=== PATIENT | female | born 1985 ===

== ENCOUNTER 2019-03-02 16:22 | Inpatient (IN) | payer MEDICAID, SELFPAY ==
[2019-03-02 17:25] VITALS: BMI 29.2
[2019-03-02] MEDS ORDERED: Oxytocin 30 UNIT in NS 500 ml 30 UNITS/500 ML BAG IV ONE (17:54)
[2019-03-02] MEDS ORDERED: Lactated Ringer's 1,000 ML IV ONE (18:00)
[2019-03-02] MEDS ORDERED: Oxytocin 10 Units/ml Inj ONE (18:24)
[2019-03-02] MEDS ORDERED: Oxytocin 10 Units/ml Inj IM ONE (18:31)
[2019-03-02] MEDS ORDERED: Oxycodone/Acetaminophen 5/325 mg Tab PO PRN ×2 (18:32→19:12)
[2019-03-02] MEDS ORDERED: Benzocaine/Menthol SPRAY TOP PRN ×2 (18:32→19:12)
[2019-03-02 18:49] LABS: BASO # 0.1 K/uL (0.0-0.2); BASO % 0.9 % (0.0-2.0); EOS % 0.4 % (0.0-4.0); HEMOGLOBIN 12.3 g/dL (12.0-16.0); LYMPH # 2.3 K/uL (1.0-4.3); LYMPH % 23.5 % (20.0-40.0); MEAN CELL VOLUME 87.6 fl (81.0-99.0); MEAN CORPUSCULAR HEMOGLOBIN 28.8 pg (27.0-31.0); MEAN CORPUSCULAR HGB CONC 32.9 g/dL (33.0-37.0); MEAN PLATELET VOLUME 12.9 fl (7.2-11.7); MONO # 0.4 K/uL (0.0-0.8); MONO % 3.7 % (0.0-10.0); NEUT # 6.9 K/uL (1.8-7.0); NEUT % 71.5 % (50.0-75.0); NRBC % 0.2 % (0.0-0.0); RBC 4.27 Mil/uL (3.80-5.20); RED CELL DISTRIBUTION WIDTH 16.9 % (11.5-14.5); WHITE BLOOD COUNT 9.7 K/uL (4.8-10.8)
[2019-03-03 07:30] LABS: BASO % 0.4 % (0.0-2.0); EOS % 0.4 % (0.0-4.0); HEMOGLOBIN 11.4 g/dL (12.0-16.0); LYMPH # 1.8 K/uL (1.0-4.3); LYMPH % 18.3 % (20.0-40.0); MEAN CELL VOLUME 88.7 fl (81.0-99.0); MEAN CORPUSCULAR HEMOGLOBIN 29.1 pg (27.0-31.0); MEAN CORPUSCULAR HGB CONC 32.8 g/dL (33.0-37.0); MEAN PLATELET VOLUME 12.1 fl (7.2-11.7); MONO # 0.7 K/uL (0.0-0.8); MONO % 6.9 % (0.0-10.0); NEUT # 7.3 K/uL (1.8-7.0); RBC 3.9 Mil/uL (3.80-5.20); RED CELL DISTRIBUTION WIDTH 16.5 % (11.5-14.5); WHITE BLOOD COUNT 9.9 K/uL (4.8-10.8)
--- NOTE | 2019-03-03 08:43 | OBPPN ---
Datetime: 03/03/2019 05:54 PP Pain Prov: Within normal limits PP Nausea Prov: Denies PP Flatus Prov: Yes PP BM Prov: No PP Heart Prov: Normal PP Lungs Prov: Normal PP Lochia Prov: Normal PP Extremities Prov: Normal PP C/S Incision Prov: Not Applicable PP Progress Prov: Normal PP Comments Phys Exam Prov: see progress note PP Impression Prov: Normal progression PP Plan Prov: Continue present management PP Progress Note Prov: 33 YO , PPD 1 s/p yesterday 03/02/19. Patient seen and examined at bedside this morning. Patient has no complaints, reports that the pain is controlled with pain medica tion. Patient is ambulating w/o difficulties. Pt is breast feeding, she is tolerating regular diet. L ochia like menses in volume. +Flatus, -BM. Denies fevers, chills, dizziness, chest pain, SOB, N/V/D, hematuria or dysuria. VS: wnl Gen: NAD HEENT: NCAT Cardio: RRR, S1S2 present. Lungs: CTA B/L, no wheezes Abd: soft, appropriate tenderness to palpation, Uterus firm below level of umbilicus Ext: No edema, Myesha's negative NEURO/PSYCH: AAOx3, no grossly focal deficits, preserved affect and mood A/P 33 YO , PPD 1 s/p yesterday 03/02/19, with normal progression. Plan: - and ambulation encouraged. -Ibuprofen 600 mg 1 tab Q 6h PRN mild pain -Percocet 5/325 PO Q4h PRN pain -Continue vit -DC planning on 03/04/19 Case discussed with attending Xiang Brian MD PGY1 Attending addendum: I saw and examined the patient at bedside myself this morning. I reviewed the resident note above and agree with findings and management. Anticipate DC home tomorrow. Teena Caputo MD Vital Signs Provider PP: Reviewed; Within Normal Limits
--- NOTE | 2019-03-04 08:36 | OBPPN ---
Datetime: 03/04/2019 05:54 PP Pain Prov: Within normal limits PP Nausea Prov: Denies PP Flatus Prov: Yes PP BM Prov: No PP Heart Prov: Normal PP Lungs Prov: Normal PP Comments Phys Exam Prov: See progress note PP Impression Prov: Normal progression PP Plan Prov: Continue present management; Discharge PP Progress Note Prov: 33 YO , PPD 2 s/p . Patient seen and examined at bedside this morn ing. Patient has no complaints, reports that the pain is controlled with pain medication. Patient is ambulating w/o difficulties. Pt is breast and bottle feeding, she is tolerating regular diet. Lochia less than menses in volume. +Flatus, -BM. Denies fevers, chills, dizziness, chest pain, SOB, N/V/D, h ematuria or dysuria. VS: wnl Gen: NAD HEENT: NCAT Cardio: RRR, S1S2 present, no murmurs noted. Lungs: CTA B/L, no wheezes, rales or rhonchi Abd: soft, appropriate tenderness to palpation, Uterus firm at level of umbilicus Ext: No edema, Myesha's negative NEURO/PSYCH: AAOx3, no grossly focal deficits, preserved affect and mood A/P 37 YO , PPD 2 s/p , with normal progression. Plan: - and ambulation encouraged. -Ibuprofen 600 mg 1 tab Q 6h PRN mild pain -Percocet 5/325 PO Q4h PRN pain -Continue vit -DC planning today Case reviewed and discussed with attending Xiang Brian MD PGY1 Attending addendum: I saw and examined the patient at bedside myself this morning. I reviewed the resident note above and agree with findings and management. DC home today, f/u at [facility]. Teena Caputo MD Vital Signs Provider PP: Reviewed; Within Normal Limits
--- NOTE | 2019-03-04 08:39 | OBDCSUM ---
Datetime: 03/04/2019 05:56 Discharged to, Provider: Home Follow up at, Provider: Dr Mijares Disch Instr Diet: Regular Discharge Instructions, Provider: Routine instructions given Discharge Diagnosis, Provider: Term Delivered Follow up in weeks, Provider: 4 weeks Contraception discussed, Prov: Yes Disch Activity Restrictions: No lifting; Minimize stair-climbing; Nothing in vagina - [place], t ampdo esperanzauchtavo Discharge Comment, Provider: 33 YO female status post NVD at [place] 39wk, had baby girl on 9. Dewitt: female, Wt. 3020 gm, 9 Post- D/C Summary: 33 YO female status post NVD at [place] 39 wk. Intrapartum: EBL 100 ml , 1st degree laceration repaired. No complications during post- period, today on her day 2 PPD with normal progression . Lochia is less than menses. Pt able to pass flatus, has passed a bowel movement. Voiding well and able to ambulate without difficulty. Tolerating regular diet w/o N/ V. Fundus firm below umbilicus level. Pt is hemodynamically stable. H/H: 11.4/34.6 Discharge Instructions given to patient: Encourage PNV 1 tab po q/day Ibuprofen 400 mg 1 tab po prn q4-6 if moderate pain. Ambulatory with caution, nothing per vagina/sex for 4 weeks, no heavy lifting, avoid stairs, if ex cessive bleeding or fever without relief from Tylenol go to ED ED precautions: If excessive bleeding, pain that does not get relief, fever >100.4, palpitations, SOB, CP or other concerning symptom go to the ED. PT was urged if feeling sad, mood swing, depression, neglect of baby, suicidal thoughts, homicidal thoughts go to ER or call 911 for help Follow-up with [facility] in 4 week for post- check. Attending addendum: I saw and examined the patient at bedside myself this morning. I reviewed the resident note above and agree with findings and management. Teena Caputo MD Contraception after Delivery: Undecided
[2019-03-04 18:15] VITALS: BP 114/80; PULSE 77; RESP 20; TEMP 98.2; O2SAT 99
== END 2019-03-04 12:30 | disposition home or self-care (01) | DRG 560 ==
LOC: H.EROB2 16:22 → H.L&D 17:52 → H.OB/GYN 20:34
PROVIDERS: ADMIT Obstetrics & Gynecology Gynecology; ATTEND Obstetrics & Gynecology Gynecology
PROC: 10E0XZZ Delivery of Products of Conception, External Approach (ICD-10-PCS; principal; 2019-03-02)
PROC: 4A1HXCZ Monitoring of Products of Conception, Cardiac Rate, External Approach (ICD-10-PCS; 2019-03-02)
PROC: 0HQ9XZZ Repair Perineum Skin, External Approach (ICD-10-PCS; 2019-03-02)
DX: O62.3 Precipitate labor (principal); O69.81X0 Labor and delivery complicated by cord around neck, without compression, not applicable or unspecified; Z37.0 Single live birth; Z3A.39 39 weeks gestation of pregnancy; O70.0 First degree perineal laceration during delivery

== ENCOUNTER 2019-03-10 17:21 | Emergency (ER) | payer MEDICAID, OTHER, SELFPAY ==
[2019-03-10 17:22] VITALS: BMI 29.2
[2019-03-10 17:39] VITALS: BP 129/79; PULSE 61; RESP 16; TEMP 98.2; O2SAT 98
[2019-03-10 18:56] LABS: SQUAMOUS EPITHIAL 2 /hpf (0-5); URINE BILIRUBIN NEGATIVE (NEGATIVE); URINE BLOOD MODERATE (NEGATIVE); URINE CLARITY SLIGHTY-CLOUDY (Clear); URINE COLOR STRAW (YELLOW); URINE GLUCOSE (UA) NEG (NEGATIVE); URINE LEUKOCYTE ESTERASE MOD Leu/uL (Negative); URINE PROTEIN NEGATIVE (NEGATIVE); URINE UROBILINOGEN 0.2-1.0 mg/dL (0.2-1.0)
--- NOTE | 2019-03-10 19:21 | ED PDOC ---
HPI: Female Pain Time Seen by Provider: 03/10/19 19:36 Chief Complaint (Nursing): Female Genitourinary Chief Complaint (Provider): Female Genitourinary History Per: Patient History/Exam Limitations: no limitations Onset/Duration Of Symptoms: Hrs (X8) Current Symptoms Are (Timing): Still Present Additional Complaint(s): 33 year old female with no significant past medical history presents to the ED with dysuria, frequency, and urgency going to the bathroom onset X8 hours ago. Patient states that she is going to be bathroom more frequently and with little amounts of urine with pressure. Patient states that she had a baby last week. Patient reports that she had a vaginal delivery, and still has vaginal bleeding but it is normal for her. Patient is still breast feeding. Patient reports suprapubic pain that is radiating to her back. Patient denies fever, nausea, omitting, other vaginal discharge besides bleeding. Patient is /AB 0 PMD: Eve Mijares MD Past Medical History Reviewed: Historical Data, Nursing Documentation, Vital Signs Vital Signs: Last Vital Signs Temp 98.2 F 03/10/19 17:37 Pulse 61 03/10/19 17:37 Resp 16 03/10/19 17:37 BP 129/79 03/10/19 17:37 Pulse Ox 98 03/10/19 17:37 SHANE Report Viewed: Yes - Medical History PMH: Denies: Depression, Diabetes, HTN - Surgical History Surgical History: No Surg Hx - Family History Family History: States: No Known Family Hx - Social History Current smoker - smoking cessation education provided: No Alcohol: None Drugs: Denies - Home Medications Home Medications: Ambulatory Orders Medication Instructions Recorded Pnv No.95/Ferrous Fum/Folic AC 1 tab PO DAILY 03/02/19 [ Vitamins Tablet] Nitrofurantoin Monohyd/M-Cryst 100 mg PO BID #10 capsule 03/10/19 [Macrobid 100 mg Capsule] Phenazopyridine HCl [Pyridium] 200 mg PO TID #6 tablet 03/10/19 - Allergies Allergies/Adverse Reactions: Allergies Allergy/AdvReac Type Severity Reaction Status Date / Time No Known Allergies Allergy Verified 07/20/18 22:48 Review of Systems ROS Statement: Except As Marked, All Systems Reviewed And Found Negative Constitutional: Negative for: Fever Gastrointestinal: Negative for: Nausea, Vomiting Genitourinary Female: Positive for: Dysuria, Frequency, Vaginal Bleeding, Other (urgency). Negative for: Vaginal Discharge Physical Exam - Reviewed Nursing Documentation Reviewed: Yes Vital Signs Reviewed: Yes - Physical Exam Appears: Positive for: Well Head Exam: Positive for: ATRAUMATIC, NORMOCEPHALIC Skin: Positive for: Normal Color, Warm, Dry Eye Exam: Positive for: Normal appearance, EOMI, PERRL Cardiovascular/Chest: Positive for: Regular Rate, Rhythm. Negative for: Murmur Respiratory: Positive for: Normal Breath Sounds. Negative for: Respiratory Distress Gastrointestinal/Abdominal: Positive for: Soft (stomach still large ), Other (slight tenderness to supraubic area). Negative for: Tenderness (no lateral ) Back: Positive for: Normal Inspection. Negative for: L CVA Tenderness, R CVA Tenderness Extremity: Positive for: Normal ROM (upper and Lower) Neurological/Psych: Positive for: Awake, Alert, Normal Tone - Laboratory Results Lab Results: Urine Color Straw (YELLOW) 03/10/19 18:30 Urine Clarity Slighty-cloudy (Clear) 03/10/19 18:30 Urine pH 6.0 (5.0-8.0) 03/10/19 18:30 Ur Specific [place] 1.010 (1.003-1.030) 03/10/19 18:30 Urine Protein Negative mg/dL (NEGATIVE) 03/10/19 18:30 Urine Glucose (UA) Neg mg/dL (NEGATIVE) 03/10/19 18:30 Urine Ketones Negative mg/dL (NEGATIVE) 03/10/19 18:30 Urine Blood Moderate (NEGATIVE) 03/10/19 18:30 Urine Nitrate Negative (NEGATIVE) 03/10/19 18:30 Urine Bilirubin Negative (NEGATIVE) 03/10/19 18:30 Urine Urobilinogen 0.2-1.0 mg/dL (0.2-1.0) 03/10/19 18:30 Ur Leukocyte Esterase Mod Dari/uL (Negative) 03/10/19 18:30 Urine RBC (Auto) 5 /hpf (0-3) H 03/10/19 18:30 Urine Microscopic WBC 15 /hpf (0-5) H 03/10/19 18:30 Ur Squamous Epith Cells 2 /hpf (0-5) 03/10/19 18:30 - ECG O2 Sat by Pulse Oximetry: 98 (RA) Pulse Ox Interpretation: Normal Medical Decision Making Medical Decision Making: Time: 17:37 Initial Impression: Urinary tract infection Plan: -U Preg -Urine Culture -Urinalysis -re-evaluation 19:25 Diagnosis: Urinary tract infection Clinical findings and prescription discussed with patient by provider in rwandan. Provider is aware that patient is lactating and was given Macrobid, which is safe for lactating mothers. Patient was also prescribed pyridium. Patient was advised by provider that pyridium changes the color of urine and patient should not be alarmed. No further workup is required in the ED. Patient was instructed to return to the ED if she has any CVA tenderness, nausea, vomitting, or fever. Scribe Attestation: Documented by Juarez Perea, acting as a scribe for Karey Charles APN. Provider Scribe Attestation: All medical record entries made by the Scribe were at my direction and personally dictated by me. I have reviewed the chart and agree that the record accurately reflects my personal performance of the history, physical exam, me dical decision making, and the department course for this patient. I have also personally directed, reviewed, and agree with the discharge instructions and disposition. Disposition - Clinical Impression Clinical Impression: Urinary tract infection - Patient ED Disposition Is Patient to be Admitted: No Counseled Patient/Family Regarding: Diagnosis, Rx Given - Disposition Disposition: Routine/Home Disposition Time: 19:18 Condition: STABLE Prescriptions: Nitrofurantoin Monohyd/M-Cryst [Macrobid 100 mg Capsule] 100 mg PO BID #10 capsule Phenazopyridine HCl [Pyridium] 200 mg PO TID #6 tablet Instructions: Urinary Tract Infection, Adult (DC) Print Language: IRAQI - POA Present On Arrival: None
== END 2019-03-10 19:48 | disposition home or self-care (01) ==
LOC: H.ER 17:21
DX: N39.0 Urinary tract infection, site not specified (principal)